=== PATIENT | female | born 1975 | race Two or more races ===

== ENCOUNTER 2023-05-19 04:12 | Emergency (ER) | payer SELFPAY ==
[~2023-05-19] VITALS: Ht 154.9 cm; Wt 68.0 kg
[2023-05-19 04:14] VITALS: TEMP 97.5
[2023-05-19] MEDS ORDERED: HALOPERIDOL LACTATE INJ 5 MG/ML VIAL IM ONE (04:30)
[2023-05-19] MEDS ORDERED: HALOPERIDOL LACTATE INJ 5 MG/ML VIAL ONE (04:30)
[2023-05-19 12:55] VITALS: BP 128/77; O2SAT 100
== END 2023-05-19 12:55 | disposition home or self-care (01) ==
LOC: EDBD 04:14 → ER 04:14
DX: F10.129 Alcohol abuse with intoxication, unspecified (principal); E11.9 Type 2 diabetes mellitus without complications; Y90.9 Presence of alcohol in blood, level not specified
CPT/HCPCS: 99283; 96372; 82962; J1630